=== PATIENT | female | born 1970 | race Caucasian/White ===

== ENCOUNTER 2024-05-15 10:04 | Emergency (ER) | payer OTHER, SELFPAY ==
--- NOTE | ~2024-05-15 | XR_ITS ---
EXAMINATION: XR chest 2V DATE: 05/15/2024 10:40 INDICATION: Cough. TECHNIQUE: Frontal and lateral views of the chest were obtained. COMPARISON: None. FINDINGS: There is no pneumonia, pleural effusion, or pneumothorax. The heart size is normal. There a re surgical clips in the abdomen. IMPRESSION: 1. No acute cardiopulmonary disease. 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
[2024-05-15 10:10] VITALS: BP 174/90; PULSE 107; RESP 16; TEMP 36.4; O2SAT 100
--- NOTE | 2024-05-15 10:10 | ED_ITS ---
HPI - URI/Sore Throat General Chief Complaint: Upper Respiratory Infection Stated Complaint: Cough Time Seen by Provider: 05/15/24 10:30 Source: patient and RN notes reviewed Mode of arrival: ambulatory Limitations: no limitations History of Present Illness HPI Narrative: 55-year-old female presents with concern for cough. Reports she started coughing more than 2 weeks ago, after 1 weeks she was given doxycycline which she took and finished yesterday. Reports her cough came back worse. She denies shortness of breath. She was given an inhaler at the same time as the antibiotic which she has been using 4 times a day. She denies fever, body aches, chills, sweats MD elicited complaint: cough Related Data Home Medications ?Medication ?Instructions ?Recorded ?Confirmed ?Last Taken ?Type atorvastatin 40 mg tablet 40 mg PO DAILY 10/24/19 05/15/24 Unknown History gabapentin 300 mg capsule 300 mg PO DAILY 08/27/20 05/15/24 Unknown History buspirone 5 mg tablet 5 mg PO BID 08/19/21 05/15/24 Unknown History metformin 1,000 mg tablet 1,000 mg PO BIDWMEAL 08/19/21 05/15/24 Unknown History albuterol sulfate 90 mcg/actuation inhalation 05/15/24 Unknown History aerosol inhaler lisinopril 5 mg tablet mg 05/15/24 Unknown History tirzepatide 2.5 mg/0.5 mL mg subcut 05/15/24 Unknown History subcutaneous pen injector (Mounjaro) Allergies Allergy/AdvReac Type Severity Reaction Status Date / Time codeine Allergy Severe Anaphylaxis Verified 05/15/24 10:22 ibuprofen (From Advil) Allergy Severe Anaphylaxis Verified 05/15/24 10:22 Penicillins Allergy Severe Rash Verified 05/15/24 10:22 Review of Systems Review of Systems: CONSTITUTIONAL: Denies malaise, chills, sweats, or fever. EYES: Denies visual changes, redness, or discharge. ENT: Denies rhinorrhea, congestion, sinus pain, otalgia and sore throat. CARDIOVASCULAR: Denies chest pain, palpitations, or edema. RESPIRATORY: Reports persistent cough. Denies dyspnea. GASTROINTESTINAL: Denies abdominal pain, nausea, vomiting, diarrhea SKIN: Denies rash or itching. MUSCULOSKELETAL: Denies myalgia. NEUROLOGIC: Denies headache. All systems reviewed & are unremarkable except as noted in HPI and below PMFSH Past Medical History Medical History Anxiety BMI greater than 30 Hyperlipidemia LDL goal <100 Hypertension Type 2 diabetes mellitus with hyperglycemia Surgical History Surgical History History of cholecystectomy History of endometrial ablation Family History Family History Other ADD (attention deficit disorder) Alzheimer's dementia with behavioral disturbance Asthma Breast cancer COPD (chronic obstructive pulmonary disease) Congestive heart failure Diabetes mellitus Hypertension Obesity Shortness of breath Visual loss Social History Social History Smoking status: Never smoker Alcohol intake: never Substance use: never Comments At time of signature, agree with nursing past medical, surgical, social and family history. There is no relevant family history pertinent to the presenting complaint Exam Narrative: GENERAL: Well-appearing, well-nourished, and in no acute distress. HEAD: Normocephalic EYES: PERRLA, conjunctivae clear ENT: Nares clear. Mucous membranes moist. TM pearly arevalo with sharp light reflex bilaterally; no tragal tenderness. Oropharynx not erythematous without lesions. Tonsils not enlarged and without exudate, no drooling, no hoarseness, no trismus, uvula midline. NECK: Supple. No lymphadenopathy CHEST: Clear to auscultation, breath sounds equal. No wheezing, rhonchi, rales, or stridor. No respiratory distress, speaks in full sentences. Cough noted HEART: Regular rate and rhythm. No murmur heard. SKIN: Warm, dry, no rash. NEURO: Alert and oriented x3. PSYCH: Normal mood and affect Course Course Emergency Course: Patient is aware of diagnosis, understands and agrees to treatment plan. Anticipatory guidance given. Patient agrees to follow-up as directed and is aware of reasons to seek care at the emergency department. Portions of this record may have been created with voice recognition software Level of Care: Express Care Visit Vital Signs Vital signs: Reviewed. MDM - URI/Sore Throat MDM Narrative Medical decision making narrative: Differential diagnosis considered: Morgan virus, strep pharyngitis, allergic rhinitis, upper respiratory tract infection, sinusitis, rhinosinusitis, nasopharyngitis. viral pharyngitis, otitis media, otitis externa, pneumonia, bronchitis, viral cough syndrome, viral syndrome, and influenza. Exam findings show no acute concerns or changes; patient is non-toxic appearing and is in no distress. Patient is appropriate for outpatient treatment and follow-up. Lab Data Attestation: I reviewed the patient's lab results. Imaging Data My impression: Images reviewed, interpreted by radiologist, agree, see report. Radiologist's impression: EXAMINATION: XR chest 2V DATE: 05/15/2024 10:40 INDICATION: Cough. TECHNIQUE: Frontal and lateral views of the chest were obtained. COMPARISON: None. FINDINGS: There is no pneumonia, pleural effusion, or pneumothorax. The heart size is normal. There are surgical clips in the abdomen. IMPRESSION: 1. No acute cardiopulmonary disease. Critical Care Time Critical Care Time Critical Care Time: No Discharge Plan Discharge Clinical Impression: Bronchitis Patient Disposition: Home, Self-Care Condition: Stable Instructions: Antibiotic Form, Acute Cough (ED) Additional Instructions: 1) Please follow-up with your primary care doctor in the next 1-2 days. 2) If you have any worsening of symptoms or any other urgent concerns please go to the ER. 3) Please take medications as prescribed and continue taking your home medications as usual. 4) Please read and follow information included in discharge instructions. Patient Language: Montenegrin Prescriptions: New promethazine-DM 6.25-15 mg/5 mL syrup 5 ml PO Q4-6H PRN (Reason: cough) Qty: 120 0RF methylprednisolone [Medrol (Tavon)] 4 mg tablets,dose pack See Rx Instructions .ROUTE .COMPLEX Qty: 21 0RF Rx Instructions: orally per package directions No Action albuterol sulfate 90 mcg/actuation HFA aerosol inhaler INHALATION Mounjaro 2.5 mg/0.5 mL pen injector SUBCUT lisinopril 5 mg tablet (DME) blood-glucose meter Misc See Rx Instructions .ROUTE .MEDSUPPLY Qty: 1 0RF Rx Instructions: use daily (DME) lancets [Lancets, Super Thin] Misc See Rx Instructions .ROUTE .MEDSUPPLY Qty: 100 11RF Rx Instructions: use four daily metformin 1,000 mg tablet 1,000 mg PO BIDWMEAL gabapentin 300 mg capsule 300 mg PO DAILY buspirone 5 mg tablet 5 mg PO BID atorvastatin 40 mg tablet 40 mg PO DAILY (DME) Accu-Chek Guide test strips Strip See Rx Instructions .ROUTE .COMPLEX Qty: 100 0RF Dose Instruction: USE TEST STRIPS TO CHECK 4 TIMES DAILY Rx Instructions: USE TEST STRIPS TO CHECK 4 TIMES DAILY (DME) Dexcom G6 Refractory Specialist Misc See Rx Instructions .ROUTE .MEDSUPPLY Qty: 1 0RF Rx Instructions: Use as directed (DME) Dexcom G6 Sensor Device See Rx Instructions .ROUTE .MEDSUPPLY Qty: 9 0RF Rx Instructions: Change sensor every 10 days (DME) Dexcom G6 Transmitter Device See Rx Instructions .ROUTE .MEDSUPPLY Qty: 1 0RF Rx Instructions: Change transmitter every 90 days Follow-up/Referrals: Miguel,Ralph Weinstein M.D. [Primary Care Provider] - Stand Alone Forms: Work/School Release IP Time of Disposition: 11:00
--- OUTSIDE RECORDS SUMMARY | 2024-05-15 11:05 | XMS_ITS | Referral Summary ---
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 Name Role Phone Ralph Rivera MD Primary Care Provider [phone] Encounters Date Type Department Care Team Description 05/03/2024 11:30 AM SPECIAL PROCEDURE TECHNOLOGIST Office Visit [facility] [place] [address] [place] [phone] Coral White NP Acute sinusitis, recurrence not specified, unspecified location (Primary Dx); Acute cough 04/06/2024 9:09 AM SPECIAL PROCEDURE TECHNOLOGIST - 04/06/2024 11:59 PM SPECIAL PROCEDURE TECHNOLOGIST Hospital Encounter [facility] [address] [place] [id number] Screening mammogram, encounter for Discharge Disposition: Discharge to home or self care 03/25/2024 Orders Only [facility] [place] [address] [place] [phone] Jhonny Perla, Type 2 diabetes mellitus with hyperglycemia, with long-term current use of insulin (HCC) (Primary Dx) 03/20/2024 1:10 PM SPECIAL PROCEDURE TECHNOLOGIST Lab [facility] Laboratory [address] [place] [address] Type 2 diabetes mellitus with hyperglycemia, with long-term current use of insulin ([facility]) 03/14/2024 10:00 AM SPECIAL PROCEDURE TECHNOLOGIST Office Visit [facility] at [address] [place] [phone] Jhonny Perla DO Type 2 diabetes mellitus with hyperglycemia, with long-term current use of insulin ([facility]) (Primary Dx); Severe obesity ([facility]); Hypertension associated with diabetes ([facility]); Hyperlipidemia associated with type 2 diabetes mellitus ([facility]) 02/29/2024 Orders Only [facility] [address] [place] [address] Provider, MD Clayton from Last 3 Months Allergies Active Allergy Reactions Criticality Noted Date Comments Codeine Anaphylaxis High 06/19/2019 Ibuprofen Anaphylaxis High 06/11/2020 Penicillins Rash Medium 06/11/2020 Shellfish Diarrhea,Vomiting High 06/11/2020 Medications multivitamin capsule take 1 capsule by oral route every day 0 02/23/20 11 Active fluticasone propionate (FLONASE) 50 mcg/actuation nasal spray SHAKE LIQUID AND USE 1 SPRAY IN EACH NOSTRIL DAILY 16 g 1 08/16/19 23 Active albuterol HFA (PROVENTIL HFA,VENTOLIN HFA,PROAIR HFA) 90 mcg/actuation inhaler Inhale 2 puffs every 4 (four) hours as needed for shortness of breath or wheezing (cough) 18 g 06/08/19 24 Active inhalational spacing device (Aerochamber MV) spacer Use with albuterol inhaler 1 each 06/08/19 24 Active cetirizine (Allergy Relief, cetirizine,) 10 mg tablet Take 1 tablet (10 mg total) by mouth daily 90 tablet 10/18/19 24 Active lisinopriL (PRINIVIL,ZESTRIL) 5 mg tabletIndications:H ypertension associated with diabetes (HCC) Take 1 tablet (5 mg total) by mouth daily 90 tablet 3 10/31/19 24 025 Active atorvastatin (LIPITOR) 40 mg tabletIndications:H yperlipidemia associated with type 2 diabetes mellitus (HCC) TAKE 1 TABLET(40 MG) BY MOUTH DAILY 90 tablet 3 10/31/19 24 Active busPIRone (BUSPAR) 5 mg tabletIndications:A nxiety Take 1 tablet (5 mg total) by mouth 3 (three) times a day 270 tablet 3 10/31/19 24 Active blood-glucose sensor deviceIndications:U ncontrolled type 2 diabetes mellitus with hyperglycemia ([facility]),Type 2 diabetes mellitus with hyperglycemia, with long-term current use of insulin ([facility]) 1 Device every 2 (two) weeks 6 each 1 11/02/19 24 Active blood-glucose sensor deviceIndications:T ype II or unspecified type diabetes mellitus with renal manifestations, uncontrolled(250.42 ) ([facility]) Apply 1 sensor every 10 days 9 each 3 11/07/19 24 Active pen needle, diabetic (Pen Needle) 32 gauge x 5/32 needle Use as directed once a day. 100 each 11/14/19 24 Active insulin aspart U-100 (NovoLOG PenFill U-100 Insulin) 100 unit/mL cartridge Inject 4 Units under the skin 3 (three) times a day before meals 3 mL 11/14/19 24 Active pen needle, diabetic 32 gauge x 5/32 needle Use as directed 3 times a day. 100 each 11/14/19 24 Active glucagon (Gvoke HypoPen 2-Pack) 1 mg/0.2 mL auto-injector Inject 1 mg under the skin as directed by provider for low blood sugar. 0.4 mL 11/14/19 24 Active alcohol swabs (Alcohol Wipes) pads, medicated Use as directed. 100 each 11/14/19 24 Active metoclopramide (REGLAN) 10 mg tablet Take 1 tablet (10 mg total) by mouth 3 (three) times a day as needed (nausea/vomitin g) 20 tablet 11/14/[address] (PROTONIX) 40 mg EC tabletIndications:S ymptomatic Gastroesophageal Reflux Disease Take 1 tablet (40 mg total) by mouth daily 30 tablet 11/15/19 24 Active Additional Information Patient not taking.Reported on 12/13/2023 insulin glargine 100 unit/mL (3 mL) pen for injection Inject 15 Units under the skin nightly 45 mL 4 09/03/20 24 Active gabapentin (NEURONTIN) 300 mg capsuleIndications: Diabetic polyneuropathy associated with type 2 diabetes mellitus (HCC) TAKE 1 CAPSULE(300 MG) BY MOUTH EVERY NIGHT 100 capsule 12/11/19 24 Active blood-glucose transmitter (Dexcom G6 Transmitter) device 1 Device continuously Use to monitor blood sugar continuously, change every 90 days e11.65 1 each 3 12/13/19 24 Active blood-glucose meter,continuous (Dexcom G6 Medical Technologist Clinical) misc 1 Device continuously Use to monitor blood sugar continuously. E11.65 1 each 1 12/13/19 24 Active tirzepatide (Mounjaro) 2.5 mg/0.5 mL pen injector Inject 0.5 mL (2.5 mg total) under the skin once a week 2 mL 6 03/14/19 25 Active albuterol HFA (PROVENTIL HFA,VENTOLIN HFA,PROAIR HFA) 90 mcg/actuation inhalerIndications: Acute cough Inhale 2 puffs every 4 (four) hours as needed for wheezing or shortness of breath 1 each 05/03/19 25 Active doxycycline monohydrate (MONODOX) 100 mg capsuleIndications: Acute sinusitis, recurrence not specified, unspecified location Take 1 capsule (100 mg total) by mouth 2 (two) times a day for 7 days 14 capsule 05/03/19 25 025 Active Problems Problem Noted Date Diagnosed Date Severe obesity 03/14/2024 Colon cancer screening 12/13/2023 Assessment & Plan (12/13/2023 7:53 AM CDT): Due for follow-up Cologuard test. Ordered. Type 2 diabetes mellitus wit h hyperglycemia, with long-term current use of insulin 11/15/2023 Assessment & Plan (12/13/2023 7:52 AM CDT): Improving. Congratulated on compliance with medications. Keep appointment with endocrinology today as scheduled. Appreciate their expertise. RTC as scheduled in April. RTC sooner for any concerns. Red flags reviewed. Assessment & Plan (11/15/2023 2:27 PM CDT): Currently improved. Continue with Lantus. Start NovoLog. If you have issues obtaining from the pharmacy today let us know. Will also place referral to establish care with endocrinology. Red flags reviewed. Follow-up. Sooner for any concerns. Hypokalemia 11/15/2023 Assessment & Plan (12/13/2023 7:52 AM CDT): Resolved. Assessment & Plan (11/15/2023 2:28 PM CDT): Repeat BMP ordered. Red flags reviewed. Hospital discharge follow-up 11/15/2023 Assessment & Plan (11/15/2023 2:27 PM CDT): IJena NP have personally reviewed pertinent inpatient and/or ED records, including discharge medications and [employer] if applicable. This patient's discharge medication list has been reviewed and reconciled with her outpatient medication list and has also been reviewed with patient and/or caregiver. I have noted any changes. Mild malnutrition 11/14/2023 Diabetic ketoacidosis withou t coma associated with other specified diabetes mellitus 11/10/2023 Physical exam, annual 08/04/2022 Assessment & Plan (10/31/2023 5:28 PM CDT): Preventive exam; reviewed recommended preventive screenings and vaccinations. Encourage annual flu vaccine. Wear sunscreen/protective clothing when outdoors. - referral placed to GI for screening colonoscopy Assessment & Plan (08/04/2022 4:31 PM CDT): Preventive exam; reviewed recommended preventive screenings and vaccinations. Encourage annual flu vaccine. Wear sunscreen/protective clothing when outdoors. Screening for colon cancer 12/01/2020 Assessment & Plan (12/01/2020 2:35 PM CDT): Discussed colorectal cancer screening guidelines. No family history of colon cancers. Declines screening with colonoscopy; aware that it is gold standard for CRC screening. Patient is agreeable to cologuard. Aware that kit will be mailed with directions and to call office if not received in 2 weeks. To call office if no results received within 2 weeks of test submission. Anxiety 12/01/2020 Assessment & Plan (10/31/2023 5:27 PM CDT): Patient reports good response to buspirone 5 mg twice daily, will continue to monitor. Assessment & Plan (08/04/2022 4:25 PM CDT): Doing well on buspirone 5 mg twice daily. Will continue to monitor. Assessment & Plan (12/01/2020 2:50 PM CDT): Doing well on buspar 5mg BID. No changes at this time. Uncontrolled type 2 diabetes mellitus with hyper glycemia 02/05/2019 Assessment & Plan (10/31/2023 5:26 PM CDT): Blood glucose in 300s per CGM. Will check labs today and updated A1c level. Refilled all medications, metformin, Actos, Jardiance and Ozempic. Recommended starting long-acting nightly insulin, 10 units nightly. Continue to monitor closely. Encouraged patient to follow-up with product assurance engineer. Reviewed signs and symptoms warranting immediate evaluation. Patient is aware of health consequences of untreated diabetes. Assessment & Plan (02/09/2023 8:42 AM SPECIAL PROCEDURE TECHNOLOGIST): Lab Results Component Value Date HGBA1C 8.5 (H) 02/01/2023 HGBA1C 8.6 (H) 08/03/2022 HGBA1C 10.5 (H) 05/17/2021 Patient is compliant with medications, diabetes is managed by product assurance engineer. Patient to continue follow-up with both endocrinology and sweat band separator. Using CGM device at home. No change in current medication regimen. Medications: Metformin 1000 mg b.i.d. Actos 15 mg daily Jardiance 25 mg daily Ozempic 2 mg weekly Assessment & Plan (08/04/2022 4:27 PM CDT): Lab Results Component Value Date HGBA1C 8.6 (H) 08/03/2022 HGBA1C 10.5 (H) 05/17/2021 HGBA1C 10.4 (H) 06/11/2020 Reviewed diet and exercise recommendations, discussed follow-up with sweat band separator-patient expresses interest in this. Assessment & Plan (12/01/2020 2:42 PM CDT): Lab Results Component Value Date HGBA1C 10.4 (H) 06/11/2020 HGBA1C 9.1 (H) 10/22/2019 HGBA1C 10.8% 02/04/201909/2020-9.4% Follows with endocrinology. BS at home averages 140's. Up to date on eye exam (2 weeks ago). Foot exam normal today Assessment & Plan (02/05/2019 5:13 PM SPECIAL PROCEDURE TECHNOLOGIST): A1c today=10.8% Will resume metformin at 500mg bid. Has been increasing insulin based on carb consumption (but not adjusting diet). Referral to Dr Roxanne gray at [place] Lab Results Component Value Date HGBA1C 10.8% 02/04/2019 HGBA1C 11.1 10/01/2018 HGBA1C 12.2 07/02/2018 Aware that A1c trending downward but remains very elevated. Class 1 obesity due to exces s calories with serious comorbidity and body mass index (BMI) of 33.0 to 33.9 in adult 02/04/2019 Assessment & Plan (10/31/2023 5:24 PM CDT): Encouraged healthy diet and regular exercise. No unintentional weight loss in the setting of uncontrolled diabetes. Assessment & Plan (08/04/2022 4:27 PM CDT): Weight is stable, encouraged healthy lifestyle and exercise. Assessment & Plan (12/01/2020 2:50 PM CDT): Discussed healthy diet and importance of regular physical activity. Assessment & Plan (02/05/2019 5:11 PM SPECIAL PROCEDURE TECHNOLOGIST): Reviewed need to lose weight, reviewed health benefits. Reviewed recommendations for daily intake & activity 20-30 minutes/day. Discussed healthy diet and importance of regular physical activity. Diabetic polyneuropathy asso ciated with type 2 diabetes mellitus 10/01/2018 Assessment & Plan (08/04/2022 4:29 PM CDT): Continue gabapentin 300 mg nightly. Encourage better glycemic control. Assessment & Plan (12/01/2020 2:51 PM CDT): Checking feet daily. No skin breakdown on foot exam today. Assessment & Plan (02/05/2019 5:12 PM SPECIAL PROCEDURE TECHNOLOGIST): A1c today=10.8% Will resume metformin at 500mg bid. Has been increasing insulin based on carb consumption (but not adjusting diet). Referral to Dr Roxanne gray at [place] Assessment & Plan (10/01/2018 9:04 AM CDT): a1c dropped minimally from 12.2% to 11.1%. Has completed DM educator class at [facility]. Now incorporating carb counting. Trying to snack less; h/o poor intake. Thinking about switching from Dr Ramirez to edvin at [facility]. Will call if referral needed. Poorly controlled diabetic. Poor compliance with diabetic treatment and testing. Last A1c=11.1% today Stressed need to watch intake and monitor blood sugars. Reviewed end-organ damage related to elevated blood sugars. Reviewed recommendations in diet and exercise. Stressed need to take medications as ordered. Discussed diabetic eye exam; completed 01/08/18. Aware to check feet daily Refused influenza vaccine 07/02/2018 Assessment & Plan (02/04/2019 4:46 PM SPECIAL PROCEDURE TECHNOLOGIST): No regular flu vaccines available. To go to local pharmacy for flu vaccine. Assessment & Plan (07/02/2018 10:13 AM CDT): Strongly encouraged yearly influenza vaccine Medical non-compliance 07/02/2018 Assessment & Plan (07/02/2018 10:12 AM CDT): Reviewed end-organ damage of uncontrolled DM. Referral to [facility] DM educator. Stressed need to watch intake & takes meds as ordered. Hypertension associated with diabetes 04/10/2015 Overview (06/17/2016): BENIGN HYPERTENSION Assessment & Plan (12/13/2023 7:53 AM CDT): Well controlled on lisinopril. No changes. Will continue to monitor. Assessment & Plan (11/15/2023 2:24 PM CDT): BP soft. Recommend monitoring BP at home. Okay to hold lisinopril if systolic less than 100. Highly encouraged to increase fluid intake. Will continue to monitor. Assessment & Plan (10/31/2023 5:24 PM CDT): Blood pressure is well controlled, continue present management with lisinopril 5 mg daily. Assessment & Plan (12/01/2020 2:53 PM CDT): Assessment & Plan (02/05/2019 5:13 PM SPECIAL PROCEDURE TECHNOLOGIST): The blood pressure is under good control. Ideally it should be under 130/80. Continue medications without adjustment. Continue efforts to eat well (4-5 fruits and veggies) daily and exercise for about 30 min nearly every day. Watch salt intake, keeping to less than 2000mg per day. Limit alcohol. Include strategies to cope with stress. Labs ordered today; will contact w/results once received. Hyperlipidemia associated with type 2 diabetes vibha mathews 09/01/2011 Overview (06/17/2016): HYPERLIPIDEMIA NEC/NOS Assessment & Plan (10/31/2023 5:23 PM CDT): Stable; continue atorvastatin 40 mg daily. Will increase to 80 mg if Assessment & Plan (02/09/2023 8:14 AM SPECIAL PROCEDURE TECHNOLOGIST): LDL = 130, patient no longer taking atorvastatin 40 mg daily? Assessment & Plan (08/04/2022 4:28 PM CDT): Condition is stable Discussed/ordered labs, encouraged healthy, low carbohydrate lifestyle and at least 150min/week of exercise, continue on atorvastatin 40 mg daily Assessment & Plan (12/01/2020 2:43 PM CDT): Reviewed previous lipid panel. Good control. Will check labs. Continue atorvastatin 40 mg daily. Assessment & Plan (02/05/2019 5:12 PM SPECIAL PROCEDURE TECHNOLOGIST): We will check labs and make adjustments to medications as needed. Patient should focus on limiting bad fats in the diet and using exercise as a way to improve the lipid status. Secondary prevention. Reviewed medications. Lipid panel ordered; will call w/results when rec'd. Denies any statin Ses. Reviewed diet/exercise recommendations. Reviewed red flags. Had increased atorvastatin from 20 to40mg 06/2018. Assessment & Plan (10/01/2018 9:05 AM CDT): Increased atorvastatin from 20 to 40mg 06/2018. Will recheck at next appt in 3 mos. Patient should focus on limiting bad fats in the diet and using exercise as a way to improve the lipid status. Secondary prevention. Reviewed medications. Denies any statin Ses. Reviewed diet/exercise recommendations. Reviewed red flags. Assessment & Plan (07/02/2018 10:15 AM CDT): Lipid abnormalities are worsening. Pharmacotherapy as ordered. Lipids will be reassessed in 3 months. Reviewed POCT lipid panel results from today. Copy of results given to mrs Aguilar. Increased atorvastatin from 20mg to 40mg d/t [id number]. Will return in 90 days for repeat POCT lipid panel. Obstructive sleep apnea syndrome in adult 2011 Overview (06/17/2016): Obstructive sleep apnea syndrome in adult Hypersomnia with sleep apnea 05/19/2011 Overview (06/17/2016): Hypersomnia with sleep apnea Resolved Problems Problem Noted Date Diagnosed Date Resolved Date Encounter for screening mamm ogram for breast cancer 12/01/2020 12/01/2020 Breast cancer screening 10/01/201811/12 Assessment & Plan (10/01/2018 9:04 AM CDT): Mammogram order given; will call with results when received. Encouraged to perform monthly SBE. Left maxillary sinusitis 07/02/2018 Assessment & Plan (07/02/2018 10:12 AM CDT): Complete abx sent. Reviewed abx Ses & scheduling. Aware to complete full course. To continue mucinex/sinus otc medications. Discussed nasal saline rinses/neti pots. Push fluids. Reviewed red flags; what would warrant rtc. Will continue otc zyrtec & flonase also. Onychomycosis 12/11/2015 12/01/2020 Overview (06/17/2016): Nail fungal infection Diabetes mellitus 07/27/2013 10/31/2017 Overview (06/17/2016): Diabetes mellitus Immunizations Immunization Administration Dates Next Due Influenza, Quadrivalent, Spl it, Preservative Free, Intramuscular 02/09/2023 Influenza, Split 01/08/2013,01/05/2011 Influenza, Trivalent, IM (MDV) 12/19/2011 Influenza, Trivalent, Preser vative Free, Intramuscular 12/13/2023,01/08/2013,12/19/2011,01/05 Influenza, Unspecified 08/01/2022(Deferr ed: Patient Refused),12/11/2021,11/11/2021(Deferre d: Patient Refused),12/11/2020,05/18/2020(Deferre d: Patient Refused),12/12/2019,06/21/2019(Deferre d: Patient Refused),03/13/2019(Deferred: Patient Refused),03/13/2019(Deferred: Patient Refused),02/04/2019(Deferred: Patient Refused),12/11/2018,10/01/2018(Deferre d: Patient Refused),07/02/2018(Deferred: Patient Refused),03/13/2018(Deferred: Patient Refused),03/13/2018(Deferred: Patient Refused),03/13/2017(Deferred: Patient Refused),03/13/2017(Deferred: Patient Refused),12/11/2016,12/11/2016 Pneumococcal Conjugate Pcv20 10/31/2023 Pneumococcal Polysaccharide PPV23 08/18/2014 Tdap 05/19/2011,08/05/2010 Social History Tobacco Use Types Packs/Day Years Used Date Smoking Tobacco: Never Smokeless Tobacco: Never Tobacco Cessation:Counseling Given: Not Answered Alcohol Use Standard Drinks/Week Comments No 0 (1 standard drink = 0.6 oz pur e alcohol) [facility] Utilities Answer Date Recorded In the past 12 months has th e electric, gas, oil, or water company threatened to shut off services in your home? No 11/10/2023 Social Connection and Isolation Panel [NHANES] A nswer Date Recorded In a typical week, how many times do you talk on the phone with family, friends, or neighbors? Three times a week 11/10/2023 How often do you get togethe r with friends or relatives? Twice a week 11/10/2023 Attends Alevism Services Not on file 11/09 Active Member of Clubs or Organizations Not on f ile 11/10/2023 Attends Club or Organization Meetings Not on padmini e 11/10/2023 Are you , , di vorced, , never , or living with a partner? 11/10/2023 Overall Financial Resource Strain (CARDIA) Answe r Date Recorded How hard is it for you to pa y for the very basics like food, housing, medical care, and heating? Not hard at all 11/10/2023 PHQ-2 Answer Date Recorded PHQ-2 Total Score (If total score is 3 or more points, staff should administer the PHQ-9) 0 10/31/2023 Hunger Vital Sign Answer Date Recorded Within the past 12 months, y ou worried that your food would run out before you got the money to buy more. Never true 11/10/19 24 Within the past 12 months, t he food you bought just didn't last and you didn't have money to get more. Never true 11/10/2023 PRAPARE - Transportation Answer Date Re corded In the past 12 months, has l ack of transportation kept you from medical appointments or from getting medications? No 10/13 In the past 12 months, has l ack of transportation kept you from meetings, work, or from getting things needed for daily living? No 11/10/2023 Housing Stability Vital Sign Answer Clyde e Recorded In the last 12 months, was t here a time when you were not able to pay the mortgage or rent on time? No 11/10/2023 In the past 12 months, how m any times have you moved where you were living? 0 11/10/2023 At any time in the past 12 [facility], were you homeless or living in a [place] facility (including now)? No 11/10/2023 Personal Safety Answer Date Recorded Have you ever been in or are you currently in a harmful physical or emotional relationship or is someone making you feel afraid or unsafe? 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 Not on file Not on file Last Filed Vital Signs Vital Sign Reading Time Taken Comments Blood Pressure 140/94 05/03/2024 11:21 AM SPECIAL PROCEDURE TECHNOLOGIST Pulse 99 05/03/2024 11:21 AM SPECIAL PROCEDURE TECHNOLOGIST Temperature 36.7 C (98 F) 05/03/2024 11:21 AM SPECIAL PROCEDURE TECHNOLOGIST Respiratory Rate 20 05/03/2024 11:21 AM SPECIAL PROCEDURE TECHNOLOGIST Oxygen Saturation 97% 05/03/2024 11:21 AM SPECIAL PROCEDURE TECHNOLOGIST Inhaled Oxygen Concentration - - Weight 101.6 kg (224 lb) 05/03/2024 11:21 AM SPECIAL PROCEDURE TECHNOLOGIST Height 165.1 cm (5' 5 ) 05/03/2024 11:21 AM SPECIAL PROCEDURE TECHNOLOGIST Body Mass Index 37.28 05/03/2024 11:21 AM SPECIAL PROCEDURE TECHNOLOGIST Plan of Treatment Not on file Procedures Procedure Name Priority Date/Time Associated Diagnosis Comments XR CHEST PA LATERAL 2 VIEWS Schedule Routine, Read Routine (OP Routine) 05/15/2024 10:48 AM SPECIAL PROCEDURE TECHNOLOGIST SCREENING MAMMOGRAM BILATERAL W RICHARD Schedule Routine, Read Routine (OP Routine) 04/06/2024 9:36 AM SPECIAL PROCEDURE TECHNOLOGIST Screening mammogram, encounter for ALBUMIN CREATININE RATIO, URINE Routine 03/20/2024 1:07 PM SPECIAL PROCEDURE TECHNOLOGIST Type 2 diabetes mellitus with hyperglycemia, with long-term current use of insulin (HCC) POCT HEMOGLOBIN A1C Routine 03/14/2024 9:55 AM SPECIAL PROCEDURE TECHNOLOGIST Type 2 diabetes mellitus with hyperglycemia, with long-term current use of insulin (HCC) DIABETES EYE EXAM Routine 02/29/2024 2:45 PM SPECIAL PROCEDURE TECHNOLOGIST STOOL DNA COLOGUARD Routine 12/23/2023 11:37 AM CDT Colon cancer screening EGFR Routine 11/20/2023 8:35 AM CDT Uncontrolled type 2 diabetes mellitus with hyperglycemia (HCC) Hyperlipidemia associated with type 2 diabetes mellitus (HCC) LIPID PANEL Routine 11/20/2023 8:35 AM CDT Uncontrolled type 2 diabetes mellitus with hyperglycemia (HCC) Hyperlipidemia associated with type 2 diabetes mellitus (HCC) PAP AND HPV, REFLEX TO HPV GENOTYPES Routine 02/13/2023 9:26 AM SPECIAL PROCEDURE TECHNOLOGIST Well woman exam DIABETES FOOT EXAM Routine 06/13/2017 from Last 3 Months or Most Recently Relevant to Health Maintenance Results * XR Chest Pa Lateral 2 Views (05/15/2024 10:48 AM SPECIAL PROCEDURE TECHNOLOGIST) Anatomical Region Laterality Modality Body, Chest N/A Radiographic Karin ging Historical Provider IMLatasha XR PROCEDURES Final R esult * Screening Mammogram Bilateral W Richard (04/06/2024 9:36 AM SPECIAL PROCEDURE TECHNOLOGIST) Anatomical Region Laterality Modality Breast Bilateral Mammography 04/07/2024 10:2 8 PM SPECIAL PROCEDURE TECHNOLOGIST Impressions 04/07/2024 10:28 PM SPECIAL PROCEDURE TECHNOLOGIST No evidence of malignancy in either breast. FINAL ASSESSMENT: BI-RADS Category 2: Benign. RECOMMENDATION: Recommend return for annual screening mammogram in 12 months. Electronically signed by: Haroon Jewell M.D. Narrative 04/07/2024 10:28 PM SPECIAL PROCEDURE TECHNOLOGIST EXAMINATION: BILATERAL SCREENING MAMMOGRAM COMPARISON: 04/01/2023, 01/25/2022, 12/08/2020, 12/09/2019 TECHNIQUE: Full-field 2D and digital breast tomosynthesis (DBT) images were obtained. CAD was utilized. BREAST PARENCHYMAL COMPOSITION: There are scattered areas of fibroglandular density. FINDINGS: There are stable benign-appearing microcalcifications in both breasts. There is no new suspicious finding in either breast on mammogram. Self Screening Mammogram IMG MAMMO PROCEDURES Fi nal Result * (ABNORMAL) Albumin Creatinine Ratio, Urine (03/20/2024 1:07 PM SPECIAL PROCEDURE TECHNOLOGIST) Albumin Ur 83.9 mg/L Comment: Interpretive Data No reference range established. Current interpretive data was last revised 2018. Testing performed by: [address] [address] Creatinine Ur 75.7 mg/dL DEANDRE JONES (DEANNA) Comment: Interpretive Data No reference range established. Current interpretive data was last revised 2018. Testing performed by: [address] [address] Albumin Creatinine Ratio, Ur 111(H) 1 - 29 mg/g DEANDRE JONES (DEANNA) Comment:Testing performed by : [address] [address] Urine 03/20/2024 1:07 PM SPECIAL PROCEDURE TECHNOLOGIST 03/20/2024 7:13 PM SPECIAL PROCEDURE TECHNOLOGIST Result [facility] Jhonny Perla DO LAB URINE ORDERABLES Final Result DEANDRE ROBERT (DEANNA) 1 [facility] Department of Laboratories [place], [place] [id number] * (ABNORMAL) POCT hemoglobin A1c (03/14/2024 9:55 AM SPECIAL PROCEDURE TECHNOLOGIST) Hemoglobin A1C, POC 8.3 4.0 - 5.6 % Blood 03/14/2024 9:55 AM SPECIAL PROCEDURE TECHNOLOGIST Result [facility] Jhonny Perla DO POINT OF CARE TEST ORDERABL ES Final Result * HM DIABETES EYE EXAM (02/29/2024 2:45 PM SPECIAL PROCEDURE TECHNOLOGIST) Historical Provider HEALTH MAINTENANCE Final Result * Stool DNA - Cologuard (12/23/2023 11:37 AM CDT) Stool DNA - Cologuard Negative Negative [email or web address] (CLIA #:[id number]) Comment: NEGATIVE TEST RESULT. A negative Cologuard result indicates a low likelihood that a colorectal cancer (CRC) or advanced adenoma (adenomatous polyps with more advanced pre-malignant features) is present. The chance that a person with a negative Cologuard test has a colorectal cancer is less than 1 in 1500 (negative predictive value >99.9%) or has an advanced adenoma is less than 5.3% (negative predictive value 94.7%). These data are based on a prospective cross-sectional study of 10,000 individuals at average risk for colorectal cancer who were screened with both Cologuard and colonoscopy. (Lena Garnett al, N Engl J Med 2014;370(14):7419-5442) The normal value (reference range) for this assay is negative. COLOGUARD RE-SCREENING RECOMMENDATION: Periodic colorectal cancer screening is an important part of preventive healthcare for asymptomatic individuals at average risk for colorectal cancer. Following a negative Cologuard result, the [place] [employer] and U.S. Multi-Society Task Force screening guidelines recommend a Cologuard re-screening interval of 3 years. References: [place] [employer] Guideline for Colorectal Cancer Screening: https://www.cancer.org/cancer/qvedc-rotgvh-yixhwn/esxbiwudr-xpwpbyotx-bfsnsyg/ac s-rec ommendations.html.; Venancio DK, Iker TUCKER, Denise RosalesK, Colorectal Cancer Screening: Recommendations for Physicians and Patients from the U.S. Multi-Society Task Force on Colorectal Cancer Screening , Am J Gastroenterology 2017; 112:4709-4837. TEST DESCRIPTION: Composite algorithmic analysis of stool DNA-biomarkers with hemoglobin immunoassay. Quantitative values of individual biomarkers are not reportable and are not associated with individual biomarker result reference ranges. Cologuard is intended for colorectal cancer screening of adults of either sex, 45 years or older, who are at average-risk for colorectal cancer (CRC). Cologuard has been approved for use by the U.S. FDA. The performance of Cologuard was established in a cross sectional study of average-risk adults aged 50-84. Cologuard performance in patients ages 45 to 49 years was estimated by sub-group analysis of near-age groups. Colonoscopies performed for a positive result may find as the most clinically significant lesion: colorectal cancer [4.0%], advanced adenoma (including sessile serrated polyps greater than or equal to 1cm diameter) [20%] or non- advanced adenoma [31%]; or no colorectal neoplasia [45%]. These estimates are derived from a prospective cross-sectional screening study of 10,000 individuals at average risk for colorectal cancer who were screened with both Cologuard and colonoscopy. (Lena Gann et al, N Engl J Med 2014;370(14):8797-4834.) Cologuard may produce a false negative or false positive result (no colorectal cancer or precancerous polyp present at colonoscopy follow up). A negative Cologuard test result does not guarantee the absence of CRC or advanced adenoma (pre-cancer). The current Cologuard screening interval is every 3 years. ([place] [employer] and U.S. Multi-Society Task Force). Cologuard performance data in a 10,000 patient pivotal study using colonoscopy as the reference method can be accessed at the following location: www.[employer]Allocab/results. Additional description of the Cologuard test process, warnings and precautions can be found at www.[email or web address].com. Stool 12/23/2023 11:3 7 AM CDT 12/24/2023 7:58 PM CDT Jena Gabriel NP LAB BODY FLUIDS AND STOOLS ORDERABLES Final Result [facility] (CLIA #:[id number]) [address] [place], [place] [address] * eGFR (11/20/2023 8:35 AM CDT) eGFR >90 >=60 mL/min/1. 73 m2 Comment: Interpretive Data Reference Interval Normal >/= 90 mL/min/1.73m2 Mildly decreased* 60 - 89 mL/min/1.73m2 Mildly to moderately decreased 45 - 59 mL/min/1.73m2 Moderately to severely decreased 30 - 44 mL/min/1.73m2 Severely decreased 15 - 29 mL/min/1.73m2 Kidney Failure < 15 mL/min/1.73m2 *Relative to young adult level Estimated glomerular filtration rate is determined by the 2020 CKD-EPI equation recommended by the National Kidney Foundation (A Unifying Approach to GFR Estimation: Recommendations of the NKF-ASK Task Force on Reassessing the Inclusion of Race in Diagnosing Kidney Disease, JASN 202). The CKD-EPI equation should not be used for patients with unstable renal function and has not been validated in children and those over 70. Current interpretive data was last reviewed 2021. Testing performed by: [facility], [address] [place] [address]., [address] Blood 11/20/2023 8:35 AM CDT 11/20/2023 3:16 PM CDT Agueda Song DIRECTOR MUSIC LAB BLOOD ORDERABLES Final Result DEANDRE JONES (DEANNA) 1 [facility] Department of Laboratories [place], [place] [id number] * (ABNORMAL) Lipid panel (11/20/2023 8:35 AM CDT) Cholesterol 152 30 - 199 mg/dL Comment: Interpretive Data Ages < or = 19 years Acceptable: <170 mg/dL Borderline high: 170-199 mg/dL High: >or= 200 mg/dL Ages > or = 20 years Desirable: <200 mg/dL Borderline high: 200-239 mg/dL High: >or= 240 mg/dL Literature References: 1. Expert Panel on Integrated Guidelines for Cardiovascular Health and Risk Reduction in Children and Adolescents. Pediatrics 2011;128:S213 2. NCEP Expert Panel. Circulation 2004;110:227 Current Interpretive Data was last revised on 2017. Testing performed by: [facility], [address] [place] [address]., [address] Triglycerides 201(H) <=149 mg/dL DEANDRE JONES (DEANNA) Comment: Interpretive Data Ages < or = 9 years Acceptable: <75 mg/dL Borderline high: 75-99 mg/dL High: >or= 100 mg/dL Ages 10 to 20 years Acceptable: <90 mg/dL Borderline high: 90-129 mg/dL High: >or= 130 mg/dL Ages > or = 20 years Desirable: <150 mg/dL Borderline high: 150-199 mg/dL High: 200-499 mg/dL Very high: >or= 499 mg/dL Literature References: 1. Expert Panel on Integrated Guidelines for Cardiovascular Health and Risk Reduction in Children and Adolescents. Pediatrics 2011;128:S213 2. NCEP Expert Panel. Circulation 2004;110:227 Current Interpretive Data was last revised on 2017. Testing performed by: [facility], [address] [place] [address]., [address] HDL 44 >=40 mg/dL DEANDRE JONES (DEANNA) Comment: Interpretive Data Ages < or = 19 years Acceptable: >45 mg/dL Borderline low: 40-45 mg/dL Low: <40 mg/dL Ages > or = 20 years Desirable: >or= 60 mg/dL Low: <40 mg/dL Literature References: 1. Expert Panel on Integrated Guidelines for Cardiovascular Health and Risk Reduction in Children and Adolescents. Pediatrics 2011;128:S213 2. NCEP Expert Panel. Circulation 2004;110:227 Current Interpretive Data was last revised on 2017. Testing performed by: [facility], [address] [place] [address]., [address] LDL, calculated 74 <=129 mg/dL DEANDRE JONES (DEANNA) Comment: Interpretive Data Ages < or = 19 years Acceptable: <110 mg/dL Borderline high: 110-129 mg/dL High: >or= 130 mg/dL Ages > or = 20 years Optimal: <100 mg/dL Near optimal: 100-129 mg/dL Borderline high: 130-159 mg/dL High: >160 mg/dL Calculated using the Eugene LDL-C estimating equation. This equation was implemented on 2023. Prior to this date LDL-C was estimated using the Friedewald equation. Literature References: 1. Expert Panel on Integrated Guidelines for Cardiovascular Health and Risk Reduction in Children and Adolescents. Pediatrics 2011;128:S213 2. NCEP Expert Panel. Circulation 2004;110:227 3. Eugene Elaine et al. NORMAN Cardiol. 2019July 11;5(5):540544. doi: [email or web address] Current Interpretive Data was last revised on 2023. Testing performed by: [address] [address] Non-HDL Cholesterol 108 mg/dL DEANDRE JONES (DEANNA) Comment: Interpretive Data Ages < or = 19 years Acceptable: <120 mg/dL Borderline high: 120-144 mg/dL High: >145 mg/dL Ages > or = 20 years When triglycerides are >200 mg/dL, Non-HDL cholesterol is a secondary target of therapy with treatment goals that are 30 mg/dL greater than the LDL cholesterol target. Literature References: 1. Expert Panel on Integrated Guidelines for Cardiovascular Health and Risk Reduction in Children and Adolescents. Pediatrics 2011;128:S213 2. NCEP Expert Panel. Circulation 2004;110:227 Current Interpretive Data was last revised on 2017. Testing performed by: [facility], [address] [place] [address]., [address] Chol/HDL ratio 3 EUNICE JONES (DEANNA) Comment:Testing performed by : [address] [address] Blood 11/20/2023 8:35 AM CDT 11/20/2023 1:59 PM CDT Agueda Song NP LAB BLOOD ORDERABLES Final Result DEANDRE JONES (ROBINSON) 1 [facility] [place] [address] * Pap and HPV, reflex to HPV Genotypes (02/13/2023 9:26 AM SPECIAL PROCEDURE TECHNOLOGIST) Clinical indication Comment [facility] - 01 Comment: NEGATIVE FOR INTRAEPITHELIAL LESION OR MALIGNANCY. REACTIVE CELLULAR CHANGES AND/OR REPAIR ARE PRESENT. Specimen adequacy: Comment [facility] - 01 Comment: Satisfactory for evaluation. Endocervical and/or squamous metaplastic cells (endocervical component) are present. Clinician provided ICD10 Comment [facility] - 01 Comment:[id number] Performed by Comment [facility] - 01 Comment:Imelda Steven, Cytot echnologist (ASCP) Electronically signed by Comment [facility] - Comment:Jalen Fierro MD, Pa thologist . . [facility] - 01 Note: Comment [facility] - 01 Comment: The Pap smear is a screening test designed to aid in the detection of premalignant and malignant conditions of the uterine cervix. It is not a diagnostic procedure and should not be used as the sole means of detecting cervical cancer. Both false-positive and false-negative reports do occur. Test methodology Comment [facility] - 01 Comment: This liquid based ThinPrep(R) pap test was screened with the use of an image guided system. HPV Aptima Negative Negative LAB [facility] Comment: This nucleic acid amplification test detects fourteen high-risk HPV types (16,18,31,33,35,39,45,51,52,56,58,59,66,68) without differentiation. HPV Genotype Reflex Comment [facility] - Comment:Criteria not met, HP V Genotype not performed. Thin prep 02/13/2023 9:26 AM SPECIAL PROCEDURE TECHNOLOGIST 02/14/2023 Narrative [facility] - 02/15/2023 3:10 PM SPECIAL PROCEDURE TECHNOLOGIST Performed at: 01 - [facility] [id number] Communication And Outreach Manager: Heidi Hartman MD, Phone: [phone] Performed at: 02 - [facility] [id number] Communication And Outreach Manager: Heidi Hartman MD, Phone: [phone] Specimen Comment: No. of containers..01 ThinPrep Vial Rina Vigil DIRECTOR MUSIC LAB CYTOLOGY ORDERABLES Final Re sult [facility] - 01 [facility] 02 * DIABETES FOOT EXAM (06/13/2017) Diabetic Foot Exam Unknown Historical Provider MD HEALTH MAINTENANCE Final Result from Last 3 Months or Most Recently Relevant to Health Maintenance Insurance [facility] OPTIONS PPO [facility] Advance Directives For more information, please contact: [phone] * Full Code (Latest Code Status on File) Date Activated Date Inactivated Comments 11/10/2023 11:44 AM 11/14/2023 7:17 PM * Full Code Date Activated Date Inactivated Comments 11/10/2023 3:06 AM 11/10/2023 11:44 AM Care Teams Wire Coiler Machine Operator Relationship Specialty Start Date End Date Ralph Rivera MD [address] [place] [address] PCP - General 05/21/10
--- OUTSIDE RECORDS SUMMARY | 2024-05-15 11:05 | XMS_ITS | Clinical Summary ---
Author Organization [facility] [address] [place] [address] Care Team Providers Care Litigation Legal Secretary Name Role Phone Ralph Rivera MD Primary Care Provider [phone] Allergies Active Allergy Reactions Criticality Noted Date [...] ncontrolled type 2 diabetes mellitus with hyperglycemia ([facility]),Type 2 diabetes mellitus with hyperglycemia, with long-term current use of insulin ([facility]) 1 Device every 2 (two) weeks 6 each 1 11/02/19 24 Active blood-glucose sensor deviceIndications:T ype II or unspecified type diabetes mellitus with renal manifestations, uncontrolled(250.42 ) ([facility]) Apply 1 sensor every 10 days 9 [...] under the skin nightly 45 mL 4 11/14/19 24 Active gabapentin (NEURONTIN) 300 mg capsuleIndications: Diabetic polyneuropathy associated with type 2 diabetes mellitus (HCC) TAKE 1 CAPSULE(300 MG) BY MOUTH EVERY NIGHT 100 capsule 12/11/19 24 Active blood-glucose transmitter (Dexcom G6 Transmitter) device 1 Device continuously Use to monitor blood sugar continuously, change every 90 days e11.65 1 each 3 12/13/19 24 Active blood-glucose meter,continuous (Dexcom G6 Melter Helper) misc 1 Device continuously Use to monitor [...] Assessment & Plan (11/15/2023 2:27 PM CDT): IJena, HEAD OF VISUAL MERCHANDISING have personally reviewed pertinent inpatient and/or ED [...] monitor closely. Encouraged patient to follow-up with pizza delivery. Reviewed signs and symptoms warranting immediate evaluation. Patient is aware of health consequences of untreated diabetes. Assessment & Plan (02/09/2023 8:42 AM RACK MAKER): Lab Results Component Value Date HGBA1C 8.5 (H) 02/01/2023 HGBA1C 8.6 (H) 08/03/2022 HGBA1C 10.5 (H) 05/17/2021 Patient is compliant with medications, diabetes is managed by pizza delivery. Patient to continue follow-up with both endocrinology and nutrition educator. Using CGM device at home. No change in current medication regimen. Medications: Metformin 1000 mg b.i.d. Actos 15 mg daily Jardiance 25 mg daily Ozempic 2 mg weekly Assessment & Plan (08/04/2022 4:27 PM CDT): Lab Results Component Value Date HGBA1C 8.6 (H) 08/03/2022 HGBA1C 10.5 (H) 05/17/2021 HGBA1C 10.4 (H) 06/11/2020 Reviewed diet and exercise recommendations, discussed follow-up with nutrition educator-patient expresses interest in this. Assessment & Plan (12/01/2020 2:42 PM CDT): Lab Results Component Value Date HGBA1C 10.4 (H) 06/11/2020 HGBA1C 9.1 (H) 10/22/2019 HGBA1C 10.8% 02/04/201909/2020-9.4% Follows with endocrinology. BS at home averages 140's. Up to date on eye exam (2 weeks ago). Foot exam normal today Assessment & Plan (02/05/2019 5:13 PM RACK MAKER): A1c today=10.8% Will resume metformin at 500mg bid. Has been increasing insulin based on carb consumption (but not adjusting diet). Referral to Dr Roxanne gray at [place] [facility] Results Component Value Date HGBA1C 10.8% [...] activity. Assessment & Plan (02/05/2019 5:11 PM RACK MAKER): Reviewed need to lose weight, reviewed health [...] today. Assessment & Plan (02/05/2019 5:12 PM RACK MAKER): A1c today=10.8% Will resume metformin at 500mg bid. Has been increasing insulin based on carb consumption (but not adjusting diet). Referral to Dr Roxanne gray at [place] Assessment & Plan (10/01/2018 9:04 AM CDT): a1c dropped minimally from 12.2% to 11.1%. Has completed DM educator class at [facility]. Now incorporating carb counting. Trying to snack less; h/o poor intake. Thinking about switching from Dr Ramirez to edvin at [facility]. Will call if referral needed. Poorly [...] 07/02/2018 Assessment & Plan (02/04/2019 4:46 PM RACK MAKER): No regular flu vaccines available. To go to local pharmacy for flu vaccine. Assessment & Plan (07/02/2018 10:13 AM CDT): Strongly encouraged yearly influenza vaccine Medical non-compliance 07/02/2018 Assessment & Plan (07/02/2018 10:12 AM CDT): Reviewed end-organ damage of uncontrolled DM. Referral to [facility] DM educator. Stressed need to watch intake [...] CDT): Assessment & Plan (02/05/2019 5:13 PM RACK MAKER): The blood pressure is under good control. [...] if Assessment & Plan (02/09/2023 8:14 AM RACK MAKER): LDL = 130, patient no longer taking [...] daily. Assessment & Plan (02/05/2019 5:12 PM RACK MAKER): We will check labs and make adjustments [...] Increased atorvastatin from 20mg to 40mg d/t UKR=822. Will return in 90 days for repeat [...] mellitus 07/27/2013 10/31/2017 Overview (06/17/2016): Diabetes mellitus Encounters Date Type Department Care Team Description 05/03/2024 11:30 AM RACK MAKER Office Visit [facility] [place] [address] [place] [address] Coral White NP Acute sinusitis, recurrence not specified, unspecified location (Primary Dx); Acute cough 04/06/2024 9:09 AM RACK MAKER - 04/06/2024 11:59 PM RACK MAKER Hospital Encounter [facility] [address] [place] [address] Screening mammogram, encounter for Discharge Disposition: Discharge to home or self care 03/25/[address] [facility] Diabetes Endocrine Care at [address] [place] [phone] Jhonny Perla, DO Type 2 diabetes mellitus with hyperglycemia, with long-term current use of insulin (HCC) (Primary Dx) 03/20/2024 1:10 PM RACK MAKER Lab [facility] [address] [address] Type 2 diabetes mellitus with hyperglycemia, with long-term current use of insulin (HCC) 03/14/2024 10:00 AM RACK MAKER Office Visit [facility] Diabetes Endocrine [facility] at [address] [place] [address] Jhonny Perla, Type 2 diabetes mellitus with hyperglycemia, with long-term current use of insulin (HCC) (Primary Dx); Severe obesity (HCC); Hypertension associated with diabetes (HCC); Hyperlipidemia associated with type 2 diabetes mellitus (HCC) 02/29/2024 Orders Only [facility] [address] [address] Provider, MD [place] from Last 3 Months Immunizations Immunization Administration Dates Next Due Influenza, [...] 10/31/2023 Pneumococcal Polysaccharide PPV23 08/18/2014 Tdap 05/19/2011,08/05/2010 Surgical History Surgery Date Site/Laterality Comments OTHER SURGICAL HISTORY Gallbladder surg OTHER SURGICAL HISTORY 03/13/1995 - 03/12/1996 : OTHER SURGICAL HISTORY 03/13/1996 - 03/12/1997 : 6 hr labor OTHER SURGICAL HISTORY 03/13/1999 - 03/12/2000 : 24 hr labor OTHER SURGICAL HISTORY 03/13/2011 - 03/12/2012 er neck pain CHOLECYSTECTOMY 03/13/1996 - 03/12/1997 Cholecystectomy ABLATION 03/13/2005 - 03/12/2006 Ablation Medical History Medical History Date Comments Type 2 diabetes mellitus (HCC) D iabetes type 2 Hypertension Hypertension Hx Other Medical MANAGER CULTURE Tension headache Headache, tensi on Hx Other Medical 1995 ; Comm ents: 1996-medical problems; Outcome: 37 week 4 lb(s) 10 oz Female Hx Other Medical 1996 ; Outc ome: 40 week 9 lb(s) 2 oz Female Hx Other Medical 1999 ; Outc ome: 39 week 8 lb(s) 2 oz Male Sleep apnea 2011 sleep apnea Hyperlipidemia Hyperlipidemia Family History Medical History Relation Name Comments Other Brother 1 corina Alive and well; Other Brother 3 Alive and well; Diabetes Father Diabetes mellit us; living/Diabetes mellitus; Hypertension Father Hypertension; l iving/Hypertension; Other Father Alive and well; Breast cancer Maternal Grandmother Cancer , breast; Colon cancer Maternal Grandmother Cancer, colon; Hypertension Mother Hypertension; l iving/Hypertension; Other Mother Alive and well; Thyroid disease Mother Thyroid diso rder; Relation Name Status Comments Brother 1 corina Alive Brother 2 Alive Brother 3 Father Alive Maternal Grandmother Mother Alive Social History Tobacco Use Types Packs/Day Years Used Date Smoking Tobacco: Never Smokeless Tobacco: Never Tobacco Cessation:Counseling Given: Not Answered Alcohol Use Standard Drinks/Week Comments No 0 (1 standard drink = 0.6 oz pur e alcohol) [facility] Utilities Answer Date Recorded In the past 12 months has [employer], gas, oil, or water [employer] threatened to shut off services in your home? No 11/10/2023 Social Connection and Isolation Panel [NHANES] A nswer Date Recorded In a typical week, how many times do you talk on the phone with family, friends, or neighbors? Three times a week 11/10/2023 How often do you get togethe r with friends or relatives? Twice a week 11/10/2023 Attends [employer] Services Not on file 11/09 Active Member [...] money to buy more. Never true 11/10/19 Within the past 12 months, t he [...] any time in the past 12 m [facility], were you homeless or living in a fdc (including now)? No 11/10/2023 Personal Safety Answer Date Recorded Have you ever been in or are you currently in a harmful physical or emotional relationship or is someone making you feel afraid or unsafe? 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 [employer] Not on file Not on file Not on file Obstetrics History Para Term AB IAB SAB Ectopic Multiple Livin g Live Births 3 3 3 3 3 Date Outcome GA Total Labor Labor/2nd/3rd Weight Sex Type Anes PTL Annamarie A1 A5 Name Clin Term Term Term Last Filed Vital Signs Vital Sign Reading Time Taken Comments Blood Pressure 140/94 05/03/2024 11:21 AM RACK MAKER Pulse 99 05/03/2024 11:21 AM RACK MAKER Temperature 36.7 C (98 F) 05/03/2024 11:21 AM RACK MAKER Respiratory Rate 20 05/03/2024 11:21 AM RACK MAKER Oxygen Saturation 97% 05/03/2024 11:21 AM RACK MAKER Inhaled Oxygen Concentration - - Weight 101.6 kg (224 lb) 05/03/2024 11:21 AM RACK MAKER Height 165.1 cm (5' 5 ) 05/03/2024 11:21 AM RACK MAKER Body Mass Index 37.28 05/03/2024 11:21 AM RACK MAKER Plan of Treatment Health Maintenance Due Date Last Done Comments Hepatitis C Screening 1970 Hepatitis B Screening 1988 Zoster Vaccine (1 of 2) 2020 DTaP/Tdap/Td Vaccine (3 - Td or Tdap) 05/18/2021 05/19/2011, 08/05/2010 Covid-19 Vaccine (3 - 2023-2 5 season) 2023 05/17/2020, 04/26/2020 Cervical Cancer Screening 02/14/20242022, 12/17/2021, 08/05/2020, Additional history exists Hemoglobin A1C 09/11/2024 03/14/2024, 09/0 11/2023, 11/13/2023, Additional history exists Depression Screening 10/30/2024 10/31/2023, 02/13/2023, 02/09/2023, Additional history exists Regular Well Visit/Exam 18-64 10/30/2024, 02/13/2023, 08/04/2022, Additional history exists Lipid Panel 11/19/2024 11/20/2023, 01/12, 08/03/2022, Additional history exists eGFR 11/19/2024 11/20/2023, 05/2023, 11/13/2023, Additional history exists Dilated Eye Exam 02/28/2025 02/29/2024, , 07/01/2022, Additional history exists Foot Exam 03/14/2025 03/14/2024, 01/13, 08/04/2022, Additional history exists Albumin Creatinine Ratio, Urine 03/20/2025 03/20/2024, 02/01/2023, 09/16/2021, Additional history exists Breast Cancer Screening-Mammogram 04/06/2025 04/06/2024, 04/01/2023, 01/25/2022, Additional history exists Colon Cancer Screening-DNA Stool 12/22/2026 12/23/19, 12/25/2020 Pneumococcal vaccine <65 Completed 10/31/2023, 10/2014 Influenza Vaccine Completed 12/13/2023, , 12/11/2021, Additional history exists Procedures Procedure Name Priority Date/Time Associated Diagnosis Comments XR CHEST PA LATERAL 2 VIEWS Schedule Routine, Read Routine (OP Routine) 05/15/2024 10:48 AM RACK MAKER SCREENING MAMMOGRAM BILATERAL W RICHARD Schedule Routine, Read Routine (OP Routine) 04/06/2024 9:36 AM RACK MAKER Screening mammogram, encounter for ALBUMIN CREATININE RATIO, URINE Routine 03/20/2024 1:07 PM RACK MAKER Type 2 diabetes mellitus with hyperglycemia, with long-term current use of insulin (HCC) POCT HEMOGLOBIN A1C Routine 03/14/2024 9:55 AM RACK MAKER Type 2 diabetes mellitus with hyperglycemia, with long-term current use of insulin (HCC) HM DIABETES EYE EXAM Routine 02/29/2024 2:45 PM RACK MAKER STOOL DNA COLOGUARD Routine 12/23/2023 11:37 AM [...] TO HPV GENOTYPES Routine 02/13/2023 9:26 AM RACK MAKER Well woman exam HM DIABETES FOOT EXAM Routine 06/13/2017 from Last 3 Months or Most Recently Relevant to Health Maintenance Results * XR Chest Pa Lateral 2 Views (05/15/2024 10:48 AM RACK MAKER) Anatomical Region Laterality Modality Body, Chest N/A Radiographic Karin ging Historical Provider MD IMG XR PROCEDURES Final R esult * Screening Mammogram Bilateral W Richard (04/06/2024 9:36 AM RACK MAKER) Anatomical Region Laterality Modality Breast Bilateral Mammography 04/07/2024 10:2 8 PM RACK MAKER Impressions 04/07/2024 10:28 PM RACK MAKER No evidence of malignancy in either breast. FINAL ASSESSMENT: BI-RADS Category 2: Benign. RECOMMENDATION: Recommend return for annual screening mammogram in 12 months. Electronically signed by: Haroon Jewell M.D. Narrative 04/07/2024 10:28 PM RACK MAKER EXAMINATION: BILATERAL SCREENING MAMMOGRAM COMPARISON: 04/01/2023, 01/25/2022, [...] Albumin Creatinine Ratio, Urine (03/20/2024 1:07 PM RACK MAKER) Albumin Ur 83.9 mg/L Comment: Interpretive Data No reference range established. Current interpretive data was last revised 2018. Testing performed by: [facility], [address] [place] [address]., [id number] Creatinine Ur 75.7 mg/dL DEANDRE JONES ([place]) Comment: Interpretive Data No reference range established. Current interpretive data was last revised 2018. Testing performed by: [facility], [address] [place] [address]., [id number] Albumin Creatinine Ratio, Ur 111(H) 1 - 29 mg/g DEANDRE JONES ([place]) Comment:Testing performed by : [facility], [address] [place] [address]., [address] Urine 03/20/2024 1:07 PM RACK MAKER 03/20/2024 7:13 PM RACK MAKER Jhonny Perla DO LAB URINE ORDERABLES Final Result DEANDRE JONES ([place]) 1 [facility] Department [place] [address] * (ABNORMAL) POCT hemoglobin A1c (03/14/2024 9:55 AM RACK MAKER) Pathologist [facility] Hemoglobin A1C, POC 8.3 4.0 - 5.6 % Blood 03/14/2024 9:55 AM RACK MAKER Jhonny Perla DO POINT OF CARE TEST ORDERABL ES Final Result * HM DIABETES EYE EXAM (02/29/2024 2:45 PM RACK MAKER) Historical Provider HEALTH MAINTENANCE Final Result * Stool DNA - Cologuard (12/23/2023 11:37 AM CDT) Pathologist [facility] Stool DNA - Cologuard Negative Negative [facility] (CLIA #:[id number]) Comment: NEGATIVE TEST RESULT. A negative Cologuard [...] Gann et al, N Engl J Med 2014;370(14):0520-0947) The normal value (reference range) for this assay is negative. COLOGUARD RE-SCREENING RECOMMENDATION: Periodic colorectal cancer screening is an important part of preventive healthcare for asymptomatic individuals at average risk for colorectal cancer. Following a negative Cologuard result, the [place] [employer] Society and U.S. Multi-Society Task Force screening guidelines recommend a Cologuard re-screening interval of 3 years. References: [place] [employer] Guideline for Colorectal Cancer Screening: https://www.cancer.org/cancer/mgnid-wnzrry-uuhglh/muotnoshg-icyspokgh-srpkdrn/ac s-rec ommendations.html.; Venancio DK, Iker TUCKER, Denise RosalesK, Colorectal Cancer Screening: Recommendations for Physicians and Patients from the U.S. Multi-Society Task Force on Colorectal Cancer Screening , Am J Gastroenterology 2017; 112:3120-8706. TEST DESCRIPTION: Composite algorithmic analysis of stool [...] (Lena Garnett al, N Engl J Med 2014;370(14):4096-8245.) Cologuard may produce a false negative or false positive result (no colorectal cancer or precancerous polyp present at colonoscopy follow up). A negative Cologuard test result does not guarantee the absence of CRC or advanced adenoma (pre-cancer). The current Cologuard screening interval is every 3 years. ([place] [employer] Society and U.S. Multi-Society Task Force). Cologuard performance data in a 10,000 patient pivotal study using colonoscopy as the reference method can be accessed at the following location: www.[employer]/results. Additional description of the Cologuard test process, warnings and precautions can be found at www.[employer]. Stool 12/23/2023 11:3 7 AM CDT 12/24/2023 7:58 PM CDT Jena Gabriel NP LAB BODY FLUIDS AND STOOLS ORDERABLES Final Result [facility] (CLIA #:[id number]) [address] [place] [address] * eGFR (11/20/2023 8:35 AM CDT) eGFR [...] of Race in Diagnosing Kidney Disease, JASN 2020). The CKD-EPI equation should not be used for patients with unstable renal function and has not been validated in children and those over 70. Current interpretive data was last reviewed 2021. Testing performed by: [facility], [address] [place] [address]., [address] Blood 11/20/2023 8:35 AM CDT 11/20/2023 3:16 PM CDT Agueda Song NP LAB BLOOD ORDERABLES Final Result DEANDRE JONES ([place]) 1 [facility] Department of Laboratories [place], [place] [id number] * (ABNORMAL) Lipid panel (11/20/2023 8:35 AM [...] last revised on 2017. Testing performed by: [facility], [address] [place] [address], [place]., [address] Triglycerides 201(H) <=149 mg/dL DEANDRE JONES ([place]) [...] last revised on 2017. Testing performed by: [facility], [address] [place] [address]., [address] HDL 44 >=40 mg/dL DEANDRE JONES ([place]) [...] last revised on 2017. Testing performed by: [address] [address] LDL, calculated 74 <=129 mg/dL DEANDRE JONES [...] 3. Eugene Elaine et al. NORMAN Cardiol. 2020 July 11;5(5):540-548. doi: 10.1001/[email or web address] Current Interpretive Data was last revised on 2023. Testing performed by: [facility], [address] [place] [address]., [address] Non-HDL Cholesterol 108 mg/dL DEANDRE JONES ([place]) [...] last revised on 2017. Testing performed by: [facility], [address] [place] [address]., [address] Chol/HDL ratio 3 EUNICE JONES ([place]) Comment:Testing performed by : [facility], [address] [place] [address]., [address] Blood 11/20/2023 8:35 AM CDT 11/20/2023 1:59 PM CDT Agueda Song NP LAB BLOOD ORDERABLES Final Result DEANDRE ROBERT ([place]) 1 [facility] Department [place] [address] * Pap and HPV, reflex to HPV Genotypes (02/13/2023 9:26 AM RACK MAKER) Clinical indication Comment [facility] - 01 Comment: [...] (ASCP) Electronically signed by Comment [facility] - 01 Comment:Jalen Fierro MD, Pa thologist . . [...] system. HPV Aptima Negative Negative LAB [facility] 02 Comment: This nucleic acid amplification test detects fourteen high-risk HPV types (16,18,31,33,35,39,45,51,52,56,58,59,66,68) without differentiation. HPV Genotype Reflex Comment [facility] - 01 Comment:Criteria not met, HP V Genotype not performed. Thin prep 02/13/2023 9:26 AM RACK MAKER 02/14/2023 Narrative [facility] - 02/15/2023 3:10 PM RACK MAKER Performed at: - [facility] [id number] Manager Electrical: Heidi Hartman MD, Phone: [phone] Performed at: - [facility] [id number] Manager Electrical: Heidi Hartman MD, Phone: [phone] Specimen Comment: No. of containers..01 ThinPrep Vial Rina Vigil HEAD OF VISUAL MERCHANDISING LAB CYTOLOGY ORDERABLES Final Re sult [facility] - 01 LAB [facility] 02 * DIABETES FOOT EXAM (06/13/2017) Diabetic Foot Exam Unknown Historical Provider HEALTH MAINTENANCE Final Result from Last 3 Months or Most Recently Relevant to Health Maintenance Insurance [employer] PPO [facility] Advance Directives For more information, please contact: [phone] * Full Code (Latest Code Status on File) Date Activated Date Inactivated Comments 11/10/2023 11:44 AM 11/14/2023 7:17 PM * Full Code Date Activated Date Inactivated Comments 11/10/2023 3:06 AM 11/10/2023 11:44 AM Care Teams Litigation Legal Secretary Relationship Specialty Start Date End Date Ralph Rivera MD [address] [place] [address] PCP - General 05/21/10
--- OUTSIDE RECORDS SUMMARY | 2024-05-15 11:05 | XMS_ITS | Clinical Summary ---
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 Pt was told that since she is allergic to shellfish, she should not take Iodine. Penicillins Rash Medium 06/11/2020 Shellfish Allergy Diarrhea,Vomiting High 06/11/2020 Medications Insulin Aspart (NOVOLOG SC) by Subcutaneous route. Active ondansetron (ZOFRAN-ODT) 4 MG TABLET DISPERSIBLE Take 1 Tab by mouth every 8 hours as needed for Nausea - 1st line. 15 Tab 06/20/19 20 Active Multiple Vitamin (MULTI-VITAMIN PO) take 1 capsule by oral route every day 02/23/20 11 Active fluconazole (DIFLUCAN) 150 MG Tablet TAKE 1 TABLET BY MOUTH ONCE FOR 1 DOSE AND REPEAT IN 3 DAYS 04/30/19 21 Active fluticasone (FLONASE) 50 MCG/ACT Suspension 1 [place] by Nasal route. Active gabapentin (NEURONTIN) 300 MG Capsule Take 300 mg by mouth daily. 05/19/19 21 Active NovoLIN N ReliOn 100 UNIT/ML Suspension INJECT 20 UNITS SUBCUTANEOUSLY IN THE MORNING AND 15 UNITS AT NIGHT 05/21/19 21 Active insulin regular (NovoLIN R) 100 UNIT/ML Solution 25 Units by Subcutaneous route 2 times daily. 03/09/20 20 Active Insulin Syringe-Needle U-100 (BD Insulin Syringe U/F 1/2Unit) 31G X 07/26 0.3 ML Misc Use with insulin 4 x daily 10/02/19 19 Active metFORMIN (GLUCOPHAGE) 1000 MG Tablet Take 1,000 mg by mouth. 04/28/19 21 Active Semaglutide, 1 MG/DOSE, (Ozempic, 1 MG/DOSE,) 2 MG/1.5ML Solution Pen-injector INJECT 1 MG ONCE A WEEKLY 09/18/19 20 Active acetaminophen (Tylenol) 325 MG Tablet Take 325 mg by mouth every 4 hours as needed. Active Levocetirizine Dihydrochloride (Xyzal) 5 MG Tablet Take 1 Tablet by mouth daily. Active azithromycin (ZITHROMAX) 250 MG TabletIndications: Acute recurrent maxillary sinusitis 2 tab(s) daily for 1 day, then 1 tab(s) daily for days 2-5. 6 Tablet 06/12/19 21 Active Additional Information Patient not taking.Reported on 01/22/2024 atorvastatin (LIPITOR) 40 MG Tablet TAKE 1 TABLET(40 MG) BY MOUTH DAILY 10/31/19 24 Active lisinopril (PRINIVIL, ZESTRIL) 5 MG Tablet Take 5 mg by mouth daily. 10/31/19 24 025 Active busPIRone (BUSPAR) 5 MG Tablet Take by mouth. 10/31/19 24 Active Glucagon (Gvoke HypoPen 2-Pack) 1 MG/0.2ML Solution Auto-injector Inject 1 mg under the skin as directed by provider for low blood sugar. 11/14/19 24 Active insulin glargine (LANTUS, BASAGLAR) 100 UNIT/ML Solution Pen-injector by Subcutaneous route. 11/14/19 24 Active Continuous Glucose Transmitter (Dexcom G6 Transmitter) Misc 1 Device by Other route. 12/13/19 24 Active albuterol 108 (90 Base) MCG/ACT Aerosol Solution take 2 Puffs by inhalation. 06/08/19 24 Active cetirizine (ZyrTEC) 10 MG Tablet Take 10 mg by mouth daily. 10/18/19 24 Active Active Problems No known active problems Immunizations Immunization Administration Dates Next Due Covid-19, Mrna, Lnp-s, Pf, 3 0 Mcg/0.3 Ml Dose (Pfizer) 05/17/2020,04/26/2020 Influenza Vaccine 01/08/2013,12/19/2011,01/06/20 11 Influenza Vaccine,unspecified Formulation 2016 Pneumococcal Vaccine Adult - 23 Valent 5 TDAP Vaccine 05/19/2011,08/05/2010 Social History Tobacco Use Types Packs/Day Years Used Date Smoking Tobacco: Never Smokeless Tobacco: Never Alcohol Use Standard Drinks/Week Comments Not Currently 0 (1 standard drink = 0.6 oz pur e alcohol) Comments No Sex and Gender Information Value Date Recorded Sex Assigned at Not on file Legal Sex Female 8:59 PM CDT Gender Identity Not on file Sexual Orientation Not on file Last Filed Vital Signs Vital Sign Reading Time Taken Comments Blood Pressure 142/82 01/22/2024 8:55 AM 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 OF [employer] Pulse 91 01/22/2024 8:55 AM [employer]NA[employer] Temperature 36.2 C (97.1 F) 01/22/2024 8:55 AM MANAGER [employer] Respiratory Rate 12 01/22/2024 8:55 AM MANAGER [employer] Oxygen Saturation 98% 01/22/2024 8:55 AM MANAGER [employer] Inhaled Oxygen Concentration - - Weight 89.8 kg (198 lb) 06/11/2020 2:58 PM CDT Height 165.1 cm (5' 5 ) 06/11/2020 2:58 PM CDT Body Mass Index 32.95 06/11/2020 2:58 PM CDT Plan of Treatment Health Maintenance Due Date Last Done Comments Hepatitis C Virus (HCV) Screening 1970 Hepatitis B Immunization (1 of 3 - 19+ 3-dose series) 1989 Pap Smear 07/17/1991 Cervical Cancer Screening (CCS) 2000 HPV/Cotest 2000 Colonoscopy 07/17/2015 Colorectal Cancer Screening 07/17/2015 Cologuard 2020 Immunochemical Fecal Occult Blood 2020 Td Immunization Every 10 Years (Adults With 1 Tdap) 05/18/2021 05/19/2011, 08/05/2010 SARS-COV-2 Immunization ( season) 2023 02/28/2022, 03/08/2021, 05/17/2020, Additional history exists Mammogram 04/01/2024 04/01/2023, 01/11, 12/08/2020, Additional history exists Respiratory Syncytial Virus (RSV) Immunization (Adult) (1 - 1-dose 75+ series) 2045 DTaP/Tdap/Td Immunization Discontinued 05/19/2011, Zoster Immunization Completed 02/28/2022, Discussion re Starting/Frequency of Mammograms Discontinued 04/01/2023, 01/25/2022, 12/08/2020, Additional history exists Pneumococcal Immunization (50+ years) Completed 10/31/2023, 08/18/2014 Pneumococcal Immunization Combined Discontinued 10/31/2023, 08/18/2014 Influenza Immunization Completed , 02/09/2023, 12/31/2021, Additional history exists Meningococcal Immunization (ACWY) Aged Out No longer eligible based on patient's age to complete this topic Rotavirus Immunization Aged Out No lo nger eligible based on patient's age to complete this topic 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
== END 2024-05-15 11:12 | disposition home or self-care (01) ==
PROVIDERS: Emergency Provider Nurse Practitioner; PCP Family Medicine
DX: J40 Bronchitis, not specified as acute or chronic (principal); E11.9 Type 2 diabetes mellitus without complications; Z79.84 Long term (current) use of oral hypoglycemic drugs; I10 Essential (primary) hypertension; E78.5 Hyperlipidemia, unspecified; F41.9 Anxiety disorder, unspecified
CPT/HCPCS: 71046; 99213; G0463